=== PATIENT | female | born 1970 | race African-American/Black ===

== ENCOUNTER 2016-08-28 12:38 | Emergency (ER) | payer BC ==
[~2016-08-28] VITALS: Ht 162.6 cm; Wt 82.9 kg
[~2016-08-28 12:38] MED LIST: FERR324T4 PO
[2016-08-28 12:40] VITALS: BP 178/89; PULSE 84; RESP 16; TEMP 97.8; O2SAT 99
[2016-08-28] MEDS ORDERED: AMOXICILLIN 875 MG TAB PO ONE (14:15)
[2016-08-28] MEDS ORDERED: SODIUM CHLORIDE 0.9% FLUSH 10 ML FLUSH IVF PRN (14:15)
[2016-08-28] MEDS ORDERED: predniSONE 20 MG TAB PO ONE (14:15)
[2016-08-28] MEDS: RESP: ALBUTEROL 2.5 MG/IPRATROPIUM 0.5 MG NEB (SCH) INH (14:27)
--- NOTE | 2016-08-28 15:11 | RADRPT ---
EXAM DATE/TIME: 08/28/2016 14:22 [place] COMPARISON: No previous studies available for comparison. INDICATIONS : Short of breath MEDICAL HISTORY : None. SURGICAL HISTORY : None. ENCOUNTER: Initial ACUITY: 1 day PAIN SCORE: 8/10 LOCATION: Bilateral chest FINDINGS: A single view of the chest demonstrates the lungs to be symmetrically aerated without evidence of mas s, infiltrate or effusion. The cardiomediastinal contours are unremarkable. Osseous structures are intact. CONCLUSION: No acute disease. Antwan Grullon MD FACR on August 28, 2016 at 15:09 Board Certified Radiologist. This report was verified electronically.
--- NOTE | 2016-08-28 15:36 | PD ---
HPI Chief Complaint: Respiratory Symptoms Time Seen by Provider: 13:50 Travel History International Travel<30 days: No Contact w/Intl Traveler<30days: No Traveled to known affect area: No History of Present Illness HPI 46 Y/O female this emergency Department with increasing shortness of breath and wheezing. Patient has history of bronchitis and probable COPD treated in the past with steroids and Ventolin in the past. Patient also has had a week and a half history of increased sinus congestion and postnasal drip. Patient continues to smoke a pack a day. Patient states productive cough of purulent sputum over the past several days. Patient is winded with exertion but denies chest pain, fever, chills, or other constitutional symptoms. She has no known drug allergies. PFSH Past Medical History Medical History: Denies Significant Hx COPD: Yes (CHRONIC BRONCHITIS) Tetanus Vaccination: Unknown Influenza Vaccination: No ?: Not Menopausal: No Tubal Ligation: Yes Past Surgical History Surgical History: No Previous Surgery Gynecologic Surgery: Yes (TUBAL LIGATION) Social History Alcohol Use: Yes Tobacco Use: Yes Substance Use: No Allergies-Medications (Allergen,Severity, Reaction): Coded Allergies: No Known Allergies (Verified , 08/28/16) Reported Meds & Prescriptions Reported Meds & Active Scripts Active Prednisone 20 Mg Tab 20 Mg PO BID Flonase Nasal [place] (Fluticasone Nasal [place]) 50 Mcg/Act [place] 100 Mcg EACH NARE DAILY Amoxicillin 875 Mg Tab 875 Mg PO BID Ventolin Hfa 18 GM Inh (Albuterol Sulfate) 90 Mcg/Act Aer 2 Puff INH Q4-6H PRN Review of Systems Except as stated in HPI: all other systems reviewed are Neg General / Constitutional: No: Fever, Chills Eyes: No: Visual changes HENT: Positive: Rhinitis, Rhinorrhea, Congestion, No: Headaches, Vertigo, Lightheadedness, Sore Throat, Nosebleed, Neck Stiffness, Neck Pain, Gingival Bleeding, Dental Difficulties, Ear Discharge, Earache Cardiovascular: No: Chest Pain or Discomfort Respiratory: Positive: Cough, Shortness of Breath, Wheezing, No: Sneezing Gastrointestinal: No: Nausea, Vomiting, Diarrhea, Abdominal Pain Genitourinary: No: Dysuria Musculoskeletal: No: Pain Skin: No Rash Neurologic: No: Weakness Psychiatric: No: Depression Endocrine: No: Polydipsia Hematologic/Lymphatic: No: Easy Bruising Physical Exam Narrative GENERAL: Patient appears in no acute distress. SKIN: Warm and dry. Color. Normal turgor. HEAD: Atraumatic. Normocephalic. EYES: Pupils equal and round. No scleral icterus. No injection or drainage. ENT: No nasal bleeding or discharge. Mucous membranes pink and moist. Patient has normal TMs bilaterally. Sinuses are mildly tender to palpation bilaterally both maxillary sinuses. Pharynx has mild cobblestoning and erythema in the postnasal pharynx. Posterior nasal drip is noted. NECK: Trachea midline. No JVD. CARDIOVASCULAR: Regular rate and rhythm. RESPIRATORY: No accessory muscle use. Patient has moderate diffuse wheezes to auscultation throughout. Breath sounds equal bilaterally. MUSCULOSKELETAL: Extremities without clubbing, cyanosis, or edema. No obvious deformities. NEUROLOGICAL: Awake and alert. No obvious cranial nerve deficits. Motor grossly within normal limits. Five out of 5 muscle strength in the arms and legs. Normal speech. PSYCHIATRIC: Appropriate mood and affect; insight and judgment normal. Data Data Last Documented VS Vital Signs Date Time Temp Pulse Resp B/P Pulse Ox O2 Delivery O2 Flow Rate FiO2 08/28/16 14:13 90 15 97 Room Air 08/28/16 12:40 97.8 178/89 Orders Chest, Single Ap (08/28/16 14:15) Prednisone (Deltasone) (08/28/16 14:15) Albuterol-Ipratropium Neb (Duoneb Neb) (08/28/16 14:15) Sodium Chloride 0.9% Flush (Ns Flush) (08/28/16 14:15) Amoxicillin (Trimox) (08/28/16 14:15) [facility] Medical Decision Making Medical Screen Exam Complete: Yes Emergency Medical Condition: Yes Differential Diagnosis Bronchitis. Wheezing. COPD with exacerbation. Narrative Course Patient is medically stable at time of exam. Chest x-ray is ordered. Patient is given prednisone 60 mg by mouth now. Patient is given DuoNeb 3. Patient's breath sounds improved after DuoNeb and she feels symptomatically better. Patient is felt to have sinusitis as well as bronchitis or COPD with wheezing. Patient will be treated with amoxicillin 875 twice a day 10 days. Patient started on Flonase nasal spray 2 sprays each nostril daily. Patient is given albuterol metered-dose inhaler 2 puffs every 4-6 hours when necessary wheezing. Placed on prednisone 20 mg twice a day 5 days. Patient is encouraged to quit smoking as soon as possible. Patient should follow-up with primary care physician as needed. Work note is given. Diagnosis Primary Impression: COPD with exacerbation Additional Impression: Sinusitis, acute maxillary Qualified Code: J01.00 - Acute non-recurrent maxillary sinusitis Referrals: [facility] Patient Instructions: COPD (Chronic Obstructive Pulmonary Disease) (ED), General Instructions, How to Stop Smoking (ED), How to Use a Metered-Dose Inhaler (ED), Wheezing (ED) Departure Forms: Work Release Enter return to work date: Aug 30, 2016 Additional Instructions: Patient will be treated with amoxicillin 875 twice a day 10 days. Patient started on Flonase nasal spray 2 sprays each nostril daily. Patient is given albuterol metered-dose inhaler 2 puffs every 4-6 hours when necessary wheezing. Placed on prednisone 20 mg twice a day 5 days. Patient is encouraged to quit smoking as soon as possible. Patient should follow-up with primary care physician as needed. Work note is given. Med/Other Pt SpecificInfo: Prescription(s) given Scripts Prednisone 20 Mg Tab20 Mg PO BID #10 TAB Prov:Anna Mccord MD 08/28/16 Fluticasone Nasal [place] (Flonase Nasal [place])50 Mcg/Act [id number] Mcg EACH NARE DAILY #1 BOTTLE Prov:Anna Mccord MD 08/28/16 Amoxicillin 875 Mg [id number] Mg PO BID #20 TAB Prov:Anna Mccord MD 08/28/16 Albuterol 18 GM Inh (Ventolin Hfa 18 GM Inh)90 Mcg/Act Aer2 Puff INH Q4-6H PRN ( SHORTNESS OF BREATH) #1 INHALER Prov:Anna Mccord MD 08/28/16 Disposition: 01 DISCHARGE HOME Condition: Stable Geraldo Doran Aug 28, 2016 15:36
[2016-08-28] MEDS ORDERED: AMOX875T PO (15:37)
[2016-08-28] MEDS ORDERED: VENTAER INH (15:37)
[2016-08-28] MEDS ORDERED: PRED20 PO (15:37)
[2016-08-28] MEDS ORDERED: FLUT1SPR5 EACH NARE (15:37)
[2016-08-28 16:02] VITALS: BP 170/91; PULSE 101; RESP 15; O2SAT 96
[2016-08-28 16:04] VITALS: BP 172/90
== END 2016-08-28 16:37 | disposition home or self-care (01) ==
LOC: NEPD 12:38
DX: J44.1 Chronic obstructive pulmonary disease with (acute) exacerbation (principal); J01.00 Acute maxillary sinusitis, unspecified
CPT/HCPCS: 71010; 94640; 94664; 99285; J7512